=== PATIENT | female | born 1980 | race Caucasian/White ===

== ENCOUNTER 2019-11-02 11:03 | Outpatient (CLI) | payer OTHER ==
[2019-11-02] MEDS ORDERED: CETI10TA26 PO (11:34)
[2019-11-02] MEDS ORDERED: DIPH25CA61 PO ×2 (11:34)
== END 2019-11-02 23:59 | disposition home or self-care (01) ==
LOC: STAR 11:03
PROVIDERS: ATTEND Obstetrics & Gynecology Female Pelvic Medicine and Reconstructive Surgery
DX: Z02.9 Encounter for administrative examinations, unspecified (principal)